=== PATIENT | female | born 2000 | race Caucasian/White ===

== ENCOUNTER 2021-06-30 22:21 | Emergency (ER) | payer OTHER, BC, SELFPAY ==
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
[2021-06-30 22:26] VITALS: BP 117/62; PULSE 160; O2SAT 98
[2021-06-30 22:30] VITALS: BP 135/70; PULSE 130; RESP 20; TEMP 37; O2SAT 99; BMI 25.8
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
[2021-06-30 23:35] LABS: UPreg QC Valid YES; Urine Pregnancy NEGATIVE (NEGATIVE)
[2021-06-30 23:38] LABS: Glucose Urine UA NEG (NEG); Leukocyte Esterase Urine NEG (NEG); Nitrite Urine NEG (NEG); Specific Gravity - Urine <= 1.005 (1.005-1.025); Urine Blood NEG (NEG); Urine Ketones NEG (NEG); Urine Protein NEG (NEG-TRACE)
[2021-06-30 23:40] LABS: Appearance Urine CLEAR; Color Urine YELLOW
[2021-07-01] VITALS: BP 135/70; PULSE 130; RESP 20; TEMP 37; O2SAT 99
[2021-07-01 02:00] VITALS: RESP 15
[2021-07-01 04:00] VITALS: PULSE 84; RESP 15; O2SAT 98
== END 2021-07-01 05:55 | disposition home or self-care (01) ==
PROVIDERS: Nurse Practitioner Family; Emergency Provider Emergency Medicine Emergency Medical Services
DX: S13.4XXA Sprain of ligaments of cervical spine, initial encounter (principal); F10.129 Alcohol abuse with intoxication, unspecified; M54.2 Cervicalgia; Y90.9 Presence of alcohol in blood, level not specified; S13.9XXA Sprain of joints and ligaments of unspecified parts of neck, initial encounter; V43.52XA Car driver injured in collision with other type car in traffic accident, initial encounter; Y93.9 Activity, unspecified; Y92.410 Unspecified street and highway as the place of occurrence of the external cause; Y99.9 Unspecified external cause status
CPT/HCPCS: 70450; 72125; 81003; 81025; 99284

== ENCOUNTER 2025-04-22 09:31 | Outpatient (AMB) | payer BC, SELFPAY ==
--- NOTE | 2025-04-22 09:34 | MHC.PC.OV ---
Vital Signs 04/22/25 09:43 04/22/25 10:25 Height 5 ft 7 in Weight 195 lb BMI 30.5 BP 122/72 Blood Pressure Location Lt brachial Position Sitting Respiration 12 Pulse 114 H 90 Pulse Source Pulse Oximeter Pulse Oximeter Temp 97.5 F Temp Source Oral Pulse Oximetry (%) 100 Oxygen Delivery Method Room Air Intake Visit Reasons: Control Intake Note: New patient to establish care. Patient is due in May for her depo shot . Special Loan Officer Required: No Allergies amoxicillin Allergy (Severe, Verified 04/22/25 10:00) Rash Medication List - Last Reviewed 04/22/25 by Montana Han MA cholecalciferol (vitamin D3) 25 mcg PO DAILY leuprolide (3 month) (Lupron Depot) 11.25 mg IM [id number] tirzepatide (weight loss) (Zepbound) mg subcut Tobacco use date assessed: 04/22/25 Dental Screening Dental Screen Date: 04/22/25 Did you have a dental visit in the last 12 months?: Yes Did you have a dental problem in the last 6 months where you did not have access to dental care?: No Was dental information given to patient?: Patient has dentist HPI HPI Comments History of Present Illness Details 24 y/o F with obesity, Vit d def, family hx of etoh abuse, acne Surgery: wisdom teeth extraction Dad 05/2023 d/t etoh, strong etoh hx of Dads side; Maternal Grandparents Social: works at [employer], owns a home, close w/ Mom step Dad and sister Health Maintenance Tdap 2021 Pap has never had one, referred today to [facility] FITTER UP Specialist Wt Mgmt FITTER UP Here today to est care & for CPE Previous: [facility], No records Vit D def - on supplement but does not take routinely Obesity - on GLP 1 prescribed from outside prescriber, having side effects on increased dose. Plan send to [facility] Wt Mgmt for mgmt FITTER UP has never had pap. Uses Depo, next inj due May 23, needs RN visit here to admin. Plan will be to do this until she gets into [facility] FITTER UP who can take this over. Febrile Sz 4 months, nothing since. KRISTYN/Fhx etoh - Loss of dad and maternal grandparents in the last 2 years. Interested in counseling. Denies si/hi. Denies etoh or substance use herself. + Vape use: Nicotine Acne was on accutane; ffd by derm in past; no interest in cont Constitutional: Denies fever. Skin: Denies rash. Eye: Denies eye pain. ENMT: Denies sore throat and nasal congestion. Respiratory: Denies shortness of breath and cough. Gastrointestinal: Denies nausea, vomiting or abdominal pain. Cardiovascular: Denies chest pain and syncope. Genitourinary: Denies dysuria. Musculoskeletal: Denies back pain and extremity pain. Neurologic: Denies headaches, confusion, and weakness. Psychiatric: Denies suicidal thoughts and substance abuse. Allergy/ Immunologic: Denies impaired immunity. General: Well developed, well nourished, in no acute distress. Appears stated age. Head: Normocephalic, atraumatic. Eyes: Pupils are equal, round and reactive to light and accommodation. Conjunctivae are clear. Vision grossly normal. Ears: TMs clear AU, EACS WNL Nose: Patent, without discharge. Mouth: There are no ulcers or lesions noted. No inflammation, no post nasal drip, no plaques nor exudates. Neck: Supple, no adenopathy or thyromegaly. Lungs: Clear to auscultation bilaterally. No rales, rhonchi or wheeze noted. Good air flow in all chahal. Heart: Regular rate and rhythm. No murmurs, click, rubs or gallops are noted. Abdomen: Bowel sounds present in all quadrants. The abdomen is soft, nontender, with no masses or organomegaly noted. No hernias are noted. Musculoskeletal: Joints are nontender, without swelling, redness, or effusions. Range of motion is observed to be normal. Pulses: Peripheral pulses are equal and palpable bilaterally. Extremities: No clubbing, cyanosis nor edema is noted. Neurologic: Gait and station normal. Cranial Nerves 2-12 intact. Motor strength grossly symmetrical and intact. No sensory loss. Balance normal. Skin: No rashes, ulcers, or lesions noted. Turgor is good. Skin color is good. Hair and nails are without abnormalities. Psych: Normal eye contact, affect and mood appropriate, and normal interactions. Patient is alert and appropriate to context. Plan ObGyn referral Wt mgmt referral Depo shot here for now Labs today Counseling referral RTO 1 year CPE, sooner PRN An additional 30 minutes was spent addressing the problem(s) noted at todays visit. This includes time spent before the visit reviewing the chart, time spent during the visit, and time spent after the visit on documentation reviewing laboratory results, diagnostic imaging, medications, performing a medically necessary evaluation, counseling on diagnoses, care coordination, ordering appropriate tests, ordering appropriate medications, review of tests performed by other providers, reporting test results with the patient, communication with other healthcare providers. [facility] Medical History (Updated 04/22/25 @ 10:27 by Bhavana García [facility]) Acne Anxiety Surgical History (Updated 04/22/25 @ 09:48 by Montana Han MA) No history of previous surgery [place] teeth removed (~2018) Family History (Updated 04/22/25 @ 09:50 by Montana Han MA) Father Mental health disorder Substance abuse Maternal Grandmother Diabetes Cardiovascular disease Thyroid disorder Lung cancer Paternal Grandfather Stomach cancer Social History (Updated 04/22/25 @ 09:48 by Montana Han MA) Household Members: None Both parents involved: No Caregiver staying overnight: No Housing: House Are you a primary managed care liaison to a significant other at home: No Do you presently have visiting nurse or other home services: No 75 years or older and lives alone: No Alcohol intake: current Alcohol intake frequency: a few times a month Patient Tobacco Use Status: Never used Tobacco e-Cigarette/Vaping Use: Currently Using Second Hand Smoke Exposure: No Current occupational status: employed Current occupation: [employer] Cognitive needs: No Hearing needs: No Vision needs: No Questionnaire PHQ-9 Over the last 2 weeks, how often have you been bothered by any of the following problems? 1. Little interest or pleasure in doing things: not at all 2. Feeling down, depressed, or hopeless: not at all 3. Trouble falling or staying asleep, or sleeping too much: not at all 4. Feeling tired or having little energy: not at all 5. Poor appetite or overeating: not at all 6. Feeling bad about yourself - or that you are a failure or have let yourself or your family down: not at all 7. Trouble concentrating on things, such as reading the newspaper or watching television: not at all 8. Moving or speaking so slowly that other people could have noticed. Or the opposite - being so fidgety or restless that you have been moving around a lot more than usual: not at all 9. Thoughts that you would be better off or of hurting yourself in some way: not at all Total score: 0 Depression Screening Interpretation: Negative Depression Screening Done: Yes 21888 - PHQ-9 Billing: Yes Source: Developed by Drs. Jefferson Lamb, Shawnee Bustillos, Duong Farrell and colleagues, with an educational femi from [employer]. Thrive Questionnaire Date Thrive assessed: 04/22/25 I am a: Patient What is your living situation today?: I have a steady place to live Within the past 12 months, did the food you bought not last and you didn't have the money to get more?: Never true Within the past 12 months, did you worry whether your food would run out before you got money to buy more?: Never true Do you have trouble paying for medicines?: No Do you have trouble getting transportation to medical appointments?: No Do you have trouble paying your heating and electricity bill?: No Do you have trouble taking care of your child, family member or friend?: No Do you have trouble with day-to-day activities such as bathing, preparing meals, shopping, managing finances, etc.?: No Are you currently unemployed and looking for a job?: No Are you interested in more education?: No Please select the resources that you would like help with: None Currently or been in a relationship where the following occur: No concerns reported THRIVE Score: 0 AUDIT C Alcohol Use Questionnaire (AUDIT-C) 1. How often do you have a drink containing alcohol?: 2-4 times a month 2. How many drinks containing alcohol do you have on a typical day when you are drinking?: 1 or 2 3. How often do you have six or more drinks on one occasion?: Never Total Score: 2 Score Reviewed/Action Taken: Yes KRISTYN-7 AMB Questionnaire KRISTYN-7 Date KRISTYN - 7 assessed: 04/22/25 Feeling nervous, anxious, or on edge: 0 = Not at all Not being able to stop or control worryin = Not at all Worrying too much about different things: 0 = Not at all Trouble relaxin = Not at all Being so restless that it is hard to sit still: 0 = Not at all Becoming easily annoyed or irritable: 0 = Not at all Feeling afraid as if something awful might happen: 0 = Not at all Total KRISTYN-7 score (0-4 normal; 5-9 mild; 10-14 moderate; 15-21 severe): 0 Source: Developed by Drs. Jefferson Lamb, Shawnee Bustillos, Duong Farrell and colleagues, with an educational femi from [employer]. KRISTYN-7 Assessment Billing KRISTYN-7 Assessment Tool: KRISTYN-7 Assessment 02975 Physical exam (Primary Care) Vital Signs: Last Vital Signs Temp 97.5 F 04/22/25 09:43 Pulse 114 H 04/22/25 09:43 Resp 12 04/22/25 09:43 BP 122/72 04/22/25 09:43 Pulse Ox 100 04/22/25 09:43 Oxygen Delivery Method Room Air 04/22/25 09:43 BMI result Body Mass Index 30.5 BMI Assessment/Plan discussion: High BMI High, discussed plan: lifestyle Tobacco/Smoking Status: Tobacco use Status Tobacco use date assessed 04/22/25 04/22/25 09:39 Patient Tobacco Use Status Never used Tobacco 04/22/25 09:48 e-Cigarette/Vaping Use Currently Using 04/22/25 09:48 PHQ-9: PHQ-9 Score PHQ-9: Total score 0 04/22/25 09:39 Depression Screening Interpretation: Negative Thrive Assessment: Date of Thrive Assessment Date Thrive assessed 04/22/25 04/22/25 09:39 Currently or been in a relationship where the following occur: No concerns reported Coding Level of Care Code New Pt Level 3 (44338) New Pt Prev Care 18-39yr(69806 Diagnoses Encounter for general adult medical examination with abnormal findings Z00.01 Obesity (BMI 30-39.9) E66.9 Vitamin D deficiency E55.9 Patient's father is Z84.89 Family history of alcohol abuse and dependence Z81.1 KRISTYN (generalized anxiety disorder) F41.1 Vapes nicotine containing substance Z72.0 Encounter to establish care Z76.89 Additional Codes KRISTYN-7 Assessment Billing - KRISTYN-7 Assessment Tool: KRISTYN-7 Assessment 72108 ([id number]) PHQ-9 - 04006 - PHQ-9 Billing: Yes ([id number]) Assessment & Plan Assessment & Plan (1) Encounter for general adult medical examination with abnormal findings: Onset Date: ~04/22/25 Code(s): Z00.01 - Encounter for general adult medical examination with abnormal findings Category: Medical (2) Obesity (BMI 30-39.9): Code(s): E66.9 - Obesity, unspecified Category: Medical (3) Vitamin D deficiency: Code(s): E55.9 - Vitamin D deficiency, unspecified Category: Medical (4) Patient's father is : Code(s): Z84.89 - Family history of other specified conditions Category: Medical (5) Family history of alcohol abuse and dependence: Comment: Dad and dad's side of family Code(s): Z81.1 - Family history of alcohol abuse and dependence Category: Medical (6) KRISTYN (generalized anxiety disorder): Code(s): F41.1 - Generalized anxiety disorder Category: Medical (7) Vapes nicotine containing substance: Comment: Smoking Cessation How to Quit There are a lot of ways to quit smoking and many resources to help you. Family members, friends, and co-workers may be supportive or encouraging, but to be successful the desire and commitment to quit must be your own. Most people who have been able to successfully quit smoking made at least one unsuccessful attempt in the past. Try not to view past attempts to quit as failures, but rather as learning experiences. Stopping smoking or using smokeless tobacco is difficult, but anyone can do it. Know the symptoms to expect when you stop. Common symptoms include: ? An intense craving for nicotine ? Anxiety, tension, restlessness, frustration, or impatience ? Difficulty concentrating ? Drowsiness or trouble sleeping, as well as bad dreams and nightmares ? Drowsiness and trouble sleeping ? Headaches ? Increased appetite and weight gain ? Irritability or depression How severe your symptoms are depends on how long you smoked and how many cigarettes you smoked each day. Feel ready to quit? ? First and foremost, set a quit date and quit completely on that day. Before your quit date, you may begin reducing your cigarette use. But remember, there is no safe level of cigarette smoking. ? List the reasons why you want to quit. Include both short- and long-term benefits. ? Identify the times you are most likely to smoke. For example, do you tend to smoke when feeling stressed or down? When out at night with friends? While drinking coffee or alcohol? When bored? While driving? Right after a meal or sex? During a work break? While watching TV or playing cards? When you are with other smokers? ? Let all of your friends, family, and co-workers know of your plan to stop smoking and your quit date. Just being aware that they know what you're going through can be helpful, especially when you are grumpy. ? Get rid of all your cigarettes just before the quit date, and clean out anything that smells like smoke, such as clothes and furniture. Make a plan about what you will do instead of smoking at those times when you are most likely to smoke. ? Be as specific as possible. For example, drink tea instead of coffee -- tea may not trigger the desire for a cigarette. Or, take a walk when you feel stressed. ? Remove ashtrays and cigarettes from the car. Place pretzels or hard candies there instead. Pretend-smoke with a straw. ? Find activities that focus your hands and mind but are not taxing or fattening. Computer games, solitaire, knitting, sewing, and crossword puzzles may help. ? If you normally smoke after eating, find other ways to end a meal. Play a tape or CD, eat a piece of fruit, get up and make a phone call, or take a walk (a good distraction that also celis calories). Make other changes in your lifestyle. ? Change your daily schedule and habits. Eat at different times or eat several small meals instead of three large ones. Sit in a different chair or even a different room. ? Satisfy your oral habits by eating celery or other low-calorie snack, chewing sugarless gum, or sucking on a cinnamon stick. ? Go to public places and restaurants where smoking is prohibited or restricted. ? Eat regular meals and don't eat too much candy or sweet things. ? Get more exercise. Take walks or ride a bike. Exercise helps relieve the urge to smoke. Set short-term quitting goals and reward yourself when you meet them. ? Every day, put the money you normally spend on cigarettes in a jar. Then buy something pleasurable after a period of time. ? Try not to think about all the days ahead you will need to avoid smoking. Take it one day at a time. ? Even one puff or one cigarette will make your desire for more cigarettes even stronger. However, it is normal to make mistakes. So even if you have one cigarette, you don't need to take the next one. Other tips to help you quit smoking and stick to it: ? Enroll in a smoking cessation program (hospitals, health departments, community centers, and work sites often offer programs). Learn about self-hypnosis or other techniques. ? Ask your health care provider about prescription medications that are safe and appropriate for you. ? Find out about nicotine patches, gum, and sprays. The [employer]'s web site -- www.cancer.org -- is an excellent resource for smokers who are trying to quit, and the [employer] [place] [employer] can help some smokers kick the habit. Above all, don't get discouraged if you aren't able to quit smoking the first time. Nicotine addiction is a hard habit to break. Try something different next time. Develop new strategies, and try again. Many people take several attempts to finally kick the habit. Code(s): Z72.0 - Tobacco use Category: Social Hx (8) Encounter to establish care: Code(s): Z76.89 - Persons encountering health services in other specified circumstances Plan . Orders: Orders Complete Blood Count no Diff Today E55.9 - Vitamin D deficiency, unspecified, E66.9 - Obesity, unspecified, Z00.01 - Encounter for general adult medical examination with abnormal findings Hemoglobin A1c Today E55.9 - Vitamin D deficiency, unspecified, E66.9 - Obesity, unspecified, Z00.01 - Encounter for general adult medical examination with abnormal findings Lipid Panel Today E55.9 - Vitamin D deficiency, unspecified, E66.9 - Obesity, unspecified, Z00.01 - Encounter for general adult medical examination with abnormal findings Vitamin B12 and Folate Today E55.9 - Vitamin D deficiency, unspecified, E66.9 - Obesity, unspecified, Z00.01 - Encounter for general adult medical examination with abnormal findings Comprehensive Met. Panel Today E55.9 - Vitamin D deficiency, unspecified, E66.9 - Obesity, unspecified, Z00.01 - Encounter for general adult medical examination with abnormal findings Ferritin Today E55.9 - Vitamin D deficiency, unspecified, E66.9 - Obesity, unspecified, Z00.01 - Encounter for general adult medical examination with abnormal findings Microalbumin, Random (w Creat) Today E55.9 - Vitamin D deficiency, unspecified, E66.9 - Obesity, unspecified, Z00.01 - Encounter for general adult medical examination with abnormal findings TSH reflex Free T4 Today E55.9 - Vitamin D deficiency, unspecified, E66.9 - Obesity, unspecified, Z00.01 - Encounter for general adult medical examination with abnormal findings Vitamin D 25-OH Total Today E55.9 - Vitamin D deficiency, unspecified, E66.9 - Obesity, unspecified, Z00.01 - Encounter for general adult medical examination with abnormal findings Referrals Nurse Navigator Referral F41.1 - Generalized anxiety disorder, Z81.1 - Family history of alcohol abuse and dependence Medical Weight Management Referral E66.9 - Obesity, unspecified 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 Seasonal Allergies ? Insect Bites ? Cough ? Diarrhea ? Acute Asthma Attacks ? Back, Knee or Joint Pain ? Ear Infection ? Fever without a Rash ? Headaches ? Nausea ? [place] Eye, Rash or Skin Irritation ? Sore Throat ? Sports Physicals ? Vomiting Most insurances are accepted. Patients do not need to be part of the [facility] to seek care at the walk-in clinic. Locations [facility] , [place] [address] ? [phone] [facility] Walk-In Care in [place] provides services to ages 18 and over. Open Monday-Monday: 8 a.m. to 5 p.m. and Monday: 9 a.m. to 3 p.m.* *Hours may vary due to staffing availability. To confirm Walk-In Care hours in [place], please call [phone]. [address] [place] [address] ? [phone] [facility] Walk-In Care in [place] provides services to ages 12 and over. Open Monday-Monday: 8 a.m. to 5 p.m. Hours may vary due to staffing availability. To confirm Walk-In Care hours in [place], please call [phone]. LABORATORY SERVICES: [facility] Lab ? Primary Location [address] [place] [address] Monday through Monday 6:00 AM ? 5:00 PM Monday 7:00 AM ? 11:00 AM* [phone] The [facility] Lab is centrally located near the front entrance of the [facility] for easy outpatient access. Convenient parking is provided for outpatients. *Hours may vary due to staffing availability. To confirm Laboratory hours for any location, please call [phone]. Offsite Location For your convenience, we offer offsite laboratory draw stations at the following locations: [address] [place] [address] ? [facility] [address], [address] Monday through Monday 7:30 AM ? 1:00 PM* [phone] *Hours may vary due to staffing availability. To confirm Laboratory hours for any location, please call [phone]. [place] ? [address] Monday through Monday 6:00 AM ? 3:30 PM* Monday 6:30 AM ? 3 PM* [phone] *Hours may vary due to staffing availability. To confirm Laboratory hours for any location, please call [phone] [place] [address] Monday through Monday 7:30 AM ? 4:00 PM* [phone] *Hours may vary due to staffing availability. To confirm Laboratory hours for any location, please call [phone] [place] [address] Monday through 9:00 AM ? 4:00 PM* *Hours may vary due to staffing availability. To confirm Laboratory hours for any location, please call [phone]. Appointments are not necessary. Walk-ins are welcome. Like all the departments throughout the [facility], our Lab undergoes frequent reviews to ensure the quality and accuracy of test results, and our staff takes special pride in its status as a nationally accredited facility. Patient Portal: ONE PATIENT. ONE RECORD. BETTER CARE. [facility] has a fully integrated, cutting-edge mobile electronic health information system that has revolutionized the way we care for our patients and manage our organization. This system improves communication and coordination enabling us to provide safe, higher-quality care, and an overall positive experience for staff and patients. Our first priority, as always, is to deliver the highest quality care possible. The system is running in the background supporting that priority. This portal is for all [facility] services and practices. If you are experiencing any technical difficulties with enrolling or logging into the Patient Portal please complete the [facility] Patient Portal Technical Support Form. [facility] now offers a new secure on-line interactive tool for patients to review their health information ? ?Patient Portal. This interactive web portal will enable patients and their families to take an active role in their care by providing easy, secure access to their health information via the internet. The Patient Portal provides patients with instant access to their health information, including laboratory results, medications, allergies, demographic information, visit history, and more. In addition to managing their own care, parents and health care proxies with authorized consent will appreciate the ability to access the records of those individuals for whom they provide care. Please note: if you wish to gain access (Proxy) to another patient?s portal, you will be required to come to the Medical Records Department in person at [facility]. Both the patient giving proxy access and the proxy will need to provide photo identification and complete the appropriate authorization. The Patient Portal also allows track their appointments online. The [facility] Patient Portal also saves patients time by allowing them to submit updates to their demographic and contact information prior to their visits. Portal email notifications will also alert patients to any new activity on their portal, such as test results and new appointments. In order to initially enroll in the [facility] [facility] Patient Portal, you will need to enter some required information including the following: your [facility] Medical Record number your personal home email address name date of Please note: In order to enroll in the [facility] Patient Portal, we need to have your email address on file in your electronic medical record. ?The email address needs to be specific for one person (yourself) in order for your Portal enrollment to be successful. ?You can update your email address in person with our Registration staff when you are registering for a hospital visit. ?Otherwise, you will need to come to the Health Information Management (Medical Records) Department at [facility]. ?We are open from Monday ? Monday from 7:30 a.m. ? 4:30 p.m. ?You will be required to present a photo id. Once you have successfully enrolled in the Patient Portal, you will receive a one-time user id and password for the Portal, sent to your email address. ?This will allow you to log into the Patient Portal within 99 hrs and reset your own logon id and password, and define personal security questions. ?Once your permanent login and password have been set, you can log into the [facility] Patient Portal at any time via the blue button above or from the Portal Logon button on any page of the [facility] website. [facility] and [facility] encourage all of our patients to enroll in Patient Portal as it presents a valuable opportunity for patients and their families to actively participate in their care and stay healthy Welcome to [facility]. ?We look forward to working with you. Health screenings for women You should visit your health care provider from time to time, even if you are healthy. The purpose of these visits is to: Screen for medical issues Assess your risk for future medical problems Encourage a healthy lifestyle Update vaccinations and other preventive care services Help you get to know your provider in case of an illness Information Even if you feel fine, you should still see your provider for regular checkups. These visits can help you avoid problems in the future. For example, the only way to find out if you have high blood pressure is to have it checked regularly. High blood sugar and high cholesterol levels also may not have any symptoms in the early stages. A simple blood test can check for these conditions. There are specific times when you should see your provider or receive specific health screenings. The [place] Preventive Services Task Force publishes a list of recommended screenings. Below are screening guidelines for women ages 18 to 39. BLOOD PRESSURE SCREENING Your blood pressure should be checked at least once every 3 to 5 years if: Your blood pressure is in the normal range (top number less than 120 mm Hg and bottom number less than 80 mm Hg) You don't have risk factors for high blood pressure Ask your provider if you need your blood pressure checked more often if: The top number is 120 to 129 mm Hg or the bottom number is 70 to 79 mm Hg You have diabetes, heart disease, kidney problems, are overweight, or have certain other health conditions You have a first-degree relative with high blood pressure You are Black You had high blood pressure during a If the top number is 130 mm Hg or greater or the bottom number is 80 mm Hg or greater, this is considered stage 1 hypertension. Schedule an appointment with your provider to learn how you can reduce your blood pressure. Watch for blood pressure screenings in your area. Ask your provider if you can stop in to have your blood pressure checked. BREAST CANCER SCREENING Experts do not agree about the benefits of breast self-exams in finding breast cancer or saving lives. Talk to your provider about what is best for you. A screening mammogram is not recommended for most women under age 40. Your provider may discuss and recommend mammograms, MRI scans, or ultrasounds if you have an increased risk for breast cancer, such as: A mother or sister who had breast cancer at a young age (most often starting screening earlier than the age the close relative was diagnosed) You carry a high-risk genetic marker CERVICAL CANCER SCREENING Cervical cancer screening should start at age 21 years unless your provider advises otherwise. After the first test: Women ages 21 through 29 should have a Pap test every 3 years. Exoprts do not agree on whether HPV testing is recommended for this age group. Women ages 30 through 65 should be screened with either a Pap test every 3 years or the HPV test every 5 years or both tests every 5 years (called cotesting ). Women who have been treated for precancer (cervical dysplasia) should continue to have Pap tests for 20 years after treatment or until age 65, whichever is longer. If you have had your uterus and cervix removed (total hysterectomy), and you have not been diagnosed with cervical cancer or precancer (high grade cervical neoplasia), you do not need cervical cancer screening. CHOLESTEROL SCREENING Cholesterol screening should begin at: Age 45 for women with no known risk factors for coronary heart disease Age 20 for women with known risk factors for coronary heart disease Repeat cholesterol screening should take place: Every 5 years for women with normal cholesterol levels More often if changes occur in lifestyle (including weight gain and diet) More often if you have diabetes, heart disease, kidney problems, or certain other conditions DIABETES SCREENING You should be screened for diabetes starting at age 35 and then repeated every 3 years if you have no risk factors for diabetes. Screening may need to start earlier and be repeated more often if you have other risk factors for diabetes, such as: You have a first degree relative with diabetes. You are overweight or have obesity. You have high blood pressure, prediabetes, or a history of heart disease. Screening for diabetes should be done if you are planning to become and you are overweight and have other risk factors such as high blood pressure. DENTAL EXAM Go to the dentist once or twice every year for an exam and cleaning. Your dentist will evaluate if you need more frequent visits. EYE EXAM Have an eye exam every 5 to 10 years before age 40. If you have vision problems, have an eye exam every 2 years or more often if recommended by your provider. You should have an eye exam that includes an examination of your retina (back of your eye) at least every year if you have diabetes. IMMUNIZATIONS Commonly needed vaccines include: Flu shot: get one every year. COVID-19 vaccine: ask your provider what is best for you. Tetanus-diphtheria and acellular pertussis (Tdap) vaccine: have one at or after age 19 as one of your tetanus-diphtheria vaccines if you did not receive it as an adolescent. Tetanus-diphtheria: have a booster (or Tdap) every 10 years. Varicella vaccine: receive 2 doses if you never had chickenpox or the varicella vaccine. Hepatitis B vaccine: receive 2, 3, or 4 doses, depending on your exact circumstances. Measles, mumps, and rubella (MMR) vaccine: receive 1 to 2 doses if you are not already immune to MMR. Your provider can tell you if you are immune. Ask your provider about the human papillomavirus (HPV) vaccine if: You have not received the HPV vaccine in the past You have not completed the full vaccine series (you should catch up on this shot) Ask your provider if you should receive other immunizations if you have certain health problems that increase your risk for some diseases such as pneumonia. INFECTIOUS DISEASE SCREENING Women who are sexually active should be screened for chlamydia and gonorrhea up until age 25. Women 25 years and older should be screened for chlamydia and gonorrhea if at high risk. Screening for hepatitis C: All adults ages 18 to 79 should get a one-time test for hepatitis C. people should be screened at every . Screening for human immunodeficiency virus (HIV): All people ages 15 to 65 should get a one-time test for HIV. Depending on your lifestyle and medical history, you may also need to be screened for infections such as syphilis and HIV, as well as other infections. PHYSICAL EXAM All adults should visit their provider from time to time, even if they are healthy. The purpose of these visits is to: Screen for disease Assess your risk of future medical problems Encourage a healthy lifestyle Update your vaccinations and other preventive care services Maintain a relationship with a provider in case of an illness Your height, weight, and BMI should be checked at every exam. During your exam, your provider may ask you about: Depression and anxiety Diet and exercise Alcohol and tobacco use Safety issues, such as using seat belts, smoke detectors, and intimate partner violence Your medicines and risk for interactions SKIN SELF-EXAM Your provider may check your skin for signs of skin cancer, especially if you're at high risk, such as if you: Have had skin cancer before Have close relatives with skin cancer Have a weakened immune system OTHER SCREENING Talk with your provider about colon cancer screening if you have a strong family history of colon cancer or polyps, or if you have had inflammatory bowel disease or polyps yourself. Routine bone density screening of women under 40 is not recommended.
[2025-04-22 09:43] VITALS: BP 122/72; PULSE 114; RESP 12; TEMP 36.4; O2SAT 100; BMI 30.5
[2025-04-22 10:25] VITALS: PULSE 90
--- OUTSIDE RECORDS SUMMARY | 2025-04-22 10:30 | XMS_ITS | Clinical Summary ---
Author Organization [facility] Address [address] [place] [phone] Phone Care Team Providers Care Claims Consultant Name Role Phone Lis Painting NP Primary Care Provider [phone] Allergies Active Allergy Reactions Criticality Noted Date Comments Amoxicillin 07/30/2024 Nickel 08/16/2018 Medications tretinoin 0.025 % cream 5 07/10/2019 Active Clindamycin Phos-Benzoyl Perox gel APPLY TO THE FACE EVERY EVENING FOR ACNE 04/05/2022 Active medroxyPROGESTE Jeromy 150 MG/ML injectionIndica tions: control counseling Inject 1 mL (150 mg total) into the muscle every 3 (three) months. 1 mL 02/21/2025 Active Active Problems Problem Noted Date Diagnosed Date Viral URI 12/12/2024 Assessment & Plan (12/12/2024 12:41 PM EST): Exam is reassuring. No red flags. Strep and flu are negative Discussed supportive care and reasons to call the office for re-evaluation Viral Upper Respiratory Infection Plan: Encourage extra fluids and rest. The following may help: steamy baths cool-mist humidifiers nasal saline drops or sprays to help with congestion. Can use Ibuprofen or Acetaminophen for discomfort or fever. If older than one year of age, may offer 1-2 teaspoons of honey (straight, or mixed with tea or warm lemonade) to help with cough. Vicks chest rub may help with ease of breathing and reducing cough. Monitor for rapid breathing, retractions (labored breathing), wheezing, or shortness of breath. Call if worsening, fever for more than 4-5 days, or no improvement after a few days. Other fatigue 09/13/2024 Assessment & Plan (09/13/2024 11:46 AM EDT): Previous blood work was reassuring. Will check for lyme and mono today. Encourage to keep log of symptoms- pay attention to caffeine intake and water intake. Should be doing regular meals. Healthy diet. Regular exercise. I am suspicious the episodes of headaches and dizziness are from a migraine. She should take relief medication as soon as the episode begins and see if she finds relief. She will call office to book a follow up once she creates a log of symptoms or send picture of log through portal. Well adult exam 02/21/2024 Assessment & Plan (02/21/2024 2:27 PM EDT): [facility] counseling completed Aware due for pap smear Young Adult Plan: Get 8-9 hours of sleep per night. Eat healthy diet including 5 servings fruits and vegetables, no daily soda or juice, 3 servings calcium rich foods daily. Get one hour of exercise daily. Wear seatbelt in car, helmet while riding bike. Dental checkup every 6 months If wears eyeglasses or contacts, vision exam yearly Personal space, safe sex, bullying counseling done. Obsessive-compulsive disorder 02/20/2021 Assessment & Plan (02/21/2024 2:26 PM EDT): Saw psych in the past. Does not want to take medication. Fear that if she stops compulsions, bad things may happen. Compulsions to not stop her from her everyday life and she feels she is managing symptoms well. Dandruff 06/09/2020 Assessment & Plan (06/09/2020 11:12 PM EDT): Patient tried T-gel previously but this dried her scalp out too much. DIscussed use of ciclopirox shampoo twice a week for 4 weeks. This should clear up tinea corporis. Mild stress incontinence 12/13/2018 Overview (04/29/2019): Long-standing difficulty incontinence since childhood including stress incontinence after grade school; no identified urological abnormalities Visual field defects 12/13/2018 Contraceptive surveillance 04/02/2018 Overview (08/16/2018): Follow-up visit for Depo Provera injection (V25.49) Onset: 04/02/2018 Added by: Manasa Haywood Dysthymia 08/16/2016 Overview (08/16/2018): Depression (311) Onset: 08/16/2016 Added by: Tammi Catalan Other acne 03/24/2016 Overview (08/16/2018): Acne (706.1) Onset: 03/24/2016 Added by: Tammi Catalan Assessment & Plan (02/21/2024 2:27 PM EDT): Will be seeing derm next month Resolved Problems Problem Noted Date Diagnosed Date Resolved Date Hand pain, right 07/03/2021 02/21/2024 Assessment & Plan (07/03/2021 11:38 AM EDT): No specific point tenderness on exam or reduced movement of hand but with pain and bruising centering on 3rd knuckle will obtain x-ray to rule out fracture. X-ray was negative for fractures. Discussed in the visit to use ibuprofen 400mg twice a day for 5 days to help with decreasing inflammation in this area. No restrictions currently. Flea bite of multiple sites of lower extremity, initial encounter 06/29/2021 02/21/2024 Assessment & Plan (06/29/2021 3:30 PM EDT): These are flea bites. It is on the posterior thighs bilaterally. We do not know where this is. I will give her a steroid cream for this. Disturbance of conduct 04/02/201802/20 Overview (08/16/2018): Behavior problem in children (312.9) Onset: 04/02/2018 Added by: Manasa Haywood Other specified behavioral problem 10/05/2014 01/09/2019 Overview (08/16/2018): Other specified behavioral problem (V40.39) Onset: 10/05/2014 Added by: Tammi Catalan Encounters Date Type Department Care Team Description 02/28/2025 11:00 AM EDT Clinical Support [facility] [address] [place] [address] [place] [phone] Eve Beckham MA control counseling (Primary Dx) 02/20/2025 Refill [facility] [address] [place] [address] [place] [phone] Lis Painting NP control counseling from Last 3 Months Immunizations Immunization Administration Dates Next Due DTaP 5 09/14/2006, 3,03/18/2002,01/14,2001 HPV, Quadrivalent 04/26/2013,12/27/2012,10/25/20 12 Hep A, ped/adol 10/15/2018,10/03/2016 Hep B, ped/adol 12/12/2002,03/18/2002,2001 Hib (PRP-T) 03/21/2003, 2,01/14/2002,11/16 IPV 09/14/2006, 3,01/14/2002,11/16 Influenza, injectable, quadrivalent 08/01/2019,1 12/03/2015 Influenza, injectable, quadr ivalent, preservative free 08/31/2020,10/15/2018,08/12/2017 Influenza, injectable, trivalent 08/10/2010,09/13,09/26/2007 Influenza, injectable, triva lent, preservative free 10/17/2012 Influenza, intranasal, quadrivalent 09/18/2015,1 11/30/2013,11/04/2013 MMR 09/13/2002 MMRV 09/14/2006 Meningococcal Conj (Menactra) MCV4P 10/10/2017,1 12/26/2011 Pneumococcal Conjugate 03/21/2003,2001,01/14/2002,11/16 Tdap 06/28/2022,10/25/2012 Varicella 09/13/2002 Family History Medical History Relation Name Comments No Known Problems Father Henry No Known Problems Mother Madina No Known Problems Sister Ginny Relation Name Status Comments Father Henry Alive Mother Madina Alive Sister Ginny Alive Social History Tobacco Use Types Packs/Day Years Used Date Smoking Tobacco: Never Smokeless Tobacco: Never Comments:Never Smoker Alcohol Use Standard Drinks/Week Comments Never 0 (1 standard drink = 0.6 oz pur e alcohol) Hunger/Food Answer Date Recorded In the last 12 months, did y ou or your family ever eat less than you felt you should because there wasn't enough money for food? No 02/21/2024 Stable Housing Answer Date Recorded Are you worried that in the next 2 months you may not have stable housing? No 02/21/2024 Transportation Concerns Answer Date Rec orded In the last 12 months, have you or your family ever had to go without healthcare because you didn't have a way to get there? No 02/21/2024 Hazards in Home Answer Date Recorded Think about the place you li ve. Do you have problems with any of the following? Pests (mice or roaches), mold, no/not working smoke detectors, water leaks, no window guards. No 2023 Financing Utilities Answer Date Recorde d In the last 12 months, has t he electric, gas, oil, or water company threatened to shut off your services in your home? No 02/21/2024 Safety at Home Answer Date Recorded Are you or your family worried about feeling saf e in your home? No 02/21/2024 Outside Support Answer Date Recorded Do you feel that you need mo re support from other people or programs to help you care for yourself or your family? No 02/21/2024 Understanding Health Concerns Answer Da te Recorded Do you need help understandi ng your or your child's healthcare needs (diagnosis, medications, plan, etc.)? No 02/21/2024 Financing Health Concerns Answer Date R ecorded In the last 12 months, was t here a time when your child needed to see a doctor or get medications or supplies but could not because of cost? No 02/21/2024 Missing School or Work Answer Date Davian rded Did you or your child miss s chool or work because of a health problem that could have been avoided? No 02/21/2024 Child Education Answer Date Recorded Do you have concerns about y our/your child's learning or behavior in school, preschool, or daycare? No 02/21/2024 Comments No Sex and Gender Information Value Date Recorded Sex Assigned at Female 02/21/2024 1:28 PM EDT Legal Sex Female 6:19 PM EDT Gender Identity Female 02/21/2024 1:28 PM EDT Sexual Orientation Bisexual 06/28/2022 7: 45 PM EDT Last Filed Vital Signs Vital Sign Reading Time Taken Comments Blood Pressure 118/72 09/13/2024 11:10 AM EDT Pulse 77 07/30/2024 3:02 PM EDT Temperature 35.9 ??C (96.7 ??F) 02/28/2025 11:09 AM E DT Respiratory Rate - - Oxygen Saturation 99% 07/30/2024 3:02 PM EDT Inhaled Oxygen Concentration - - Weight 103 kg (227 lb) 12/12/2024 11:40 AM EST Height 167.6 cm (5' 6 ) 02/21/2024 1:06 PM EDT Body Mass Index 36.64 02/21/2024 1:06 PM EDT Plan of Treatment Upcoming Encounters Date Type Department Care Team (Late st Contact Info) Description 05/23/2025 11:00 AM EDT Clinical [facility] [address] [place] [address] [place] [id number] Health Maintenance Due Date Last Done Comments HIV Screening 2001 Syphilis Screening (consider for higher risk patients) 2001 Men B Vaccine (1 of 2 - Standard) 2017 Hepatitis C Screening 2019 Influenza Vaccines (#1) 2024 08/31/20 20, 08/01/2019, 10/15/2018, Additional history exists COVID-19 Vaccine (1 - 2023-2 5 season) 2024 Chlamydia and Gonorrhea Screening 11/13/2024 02/21/2024, 06/28/2022, 12/17/2020, Additional history exists DTaP,Tdap,and Td Vaccines (8 - Td or Tdap) 06/28/2032 06/28/2022, 10/25/2012, 09/14/2006, Additional history exists Hepatitis B Vaccines Completed 12/12/2002, 03/18/2002, 2001 HIB Vaccines Completed 03/21/2003, 04/2002, 01/14/2002, Additional history exists Pneumococcal Vaccine Completed 03/21/2003, 03/18/2002, 01/14/2002, Additional history exists IPV Vaccines Completed 09/14/2006, 07/2003, 01/14/2002, Additional history exists MMR Vaccines Completed 09/14/2006, 09/13/2002 Varicella Vaccines Completed 09/14/2006, 09/13/2002 HPV Vaccines Completed 04/26/2013, 12/14, 10/25/2012 Meningococcal Vaccine Completed 10/10/2017, 012 Hepatitis A Vaccines Completed 10/15/2018, 10/03/20 16 Procedures * Due to [place] [employer] law, this organization might not be sharing sensitive test results. Procedure Name Priority Date/Time Associated Diagnosis Comments POCT , URINE Routine 02/28/2025 11:15 AM EDT control counseling CHLAMYDIA AND GONORRHEA, AMPLIFIED Routine 02/21/2024 1:24 PM EDT Screening for STD (sexually transmitted disease) from Last 3 Months or Most Recently Relevant to Health Maintenance Results * Due to [place] [employer] law, this organization might not be sharing sensitive test results. * POCT , urine (02/28/2025 11:15 AM EDT) Preg Test, Urine, POC Negative Negative, Presumptive negative [facility] Urine 02/28/2025 11:1 5 AM EDT us Lis Painting NP POINT OF CARE TEST ORDERABLES Final Result [facility] [address], [address] [place] [address] * Chlamydia and Gonorrhoea, Amplified (02/21/2024 1:24 PM EDT) C trach CAITLIN Negative Negative [facility] N gonorrhoeae CAITLIN Negative Negative [facility] Swab (Vagina) 02/21/2024 1:2 4 PM EDT 02/21/2024 Comment:Vagina Narrative [facility] - 02/22/2024 9:06 PM EDT Performed at: ??01 - [facility] [address] ??[id number] Purchase Analyst: Mckayla Radford MD, Phone: ??[phone] Lis Painting NP LAB MICROBIOLOGY - GENERAL ORD ERABLES Final Result [facility] [address] [place] [address] from Last 3 Months or Most Recently Relevant to Health Maintenance Insurance HMO [facility] Care Teams Claims Consultant Relationship Specialty Start Date End Date Lis Painting NP [address] [place] PCP - General Pediatrics 05/02/23
== END 2025-04-22 10:24 | disposition home or self-care (01) ==
LOC: HO.HMCFM 09:32
PROVIDERS: PCP Nurse Practitioner Family; Visit Provider Nurse Practitioner Family
DX: Z00.01 Encounter for general adult medical examination with abnormal findings (principal); E66.9 Obesity, unspecified; E55.9 Vitamin D deficiency, unspecified; Z68.30 Body mass index [BMI] 30.0-30.9, adult; Z84.89 Family history of other specified conditions; Z81.1 Family history of alcohol abuse and dependence; F41.1 Generalized anxiety disorder; Z72.0 Tobacco use; Z76.89 Persons encountering health services in other specified circumstances

== ENCOUNTER → 2025-04-22 09:31 | Outpatient (BNVA) | payer BC, SELFPAY | PROVIDERS: PCP Nurse Practitioner Family; Visit Provider Nurse Practitioner Family | DX: Z00.01 Encounter for general adult medical examination with abnormal findings (principal); Z76.89 Persons encountering health services in other specified circumstances; E66.9 Obesity, unspecified; Z68.30 Body mass index [BMI] 30.0-30.9, adult; E55.9 Vitamin D deficiency, unspecified; F41.1 Generalized anxiety disorder; Z72.0 Tobacco use; Z81.1 Family history of alcohol abuse and dependence; Z13.31 Encounter for screening for depression; Z13.30 Encounter for screening examination for mental health and behavioral disorders, unspecified | CPT/HCPCS: 96127 ==

== ENCOUNTER 2025-04-22 10:45 | Outpatient (REF) | payer BC, SELFPAY ==
[2025-04-22 14:25] LABS: Hematocrit 39.7 % (37.0-47.0); Hemoglobin 13.7 g/dl (12.0-16.0); Mean Corpuscular HGB Conc 34.5 g/dl (31.0-35.0); Mean Corpuscular Volume 87.1 fL (80.0-98.0); Mean Platelet Volume 11.7 fL (9.4-12.3); Platelet Count 274 X10*3/uL (160-400); Red Blood Count 4.56 X10*6/uL (4.20-5.50); Red Cell Distribution Width 12.7 % (11.0-16.0); White Blood Count 7.1 X10*3/uL (4.8-10.8)
[2025-04-22 14:38] LABS: Estimated Average Glucose 88 mg/dL; Hemoglobin A1c % 4.7 % (<6.0)
[2025-04-22 14:51] LABS: Alanine Aminotransferase 23 U/L (0-31); Alkaline Phosphatase 62 U/L (39-117); Anion Gap 11 (12-20); Aspartate Amino Transferase 31 U/L (5-31); Bilirubin Total 0.9 mg/dL (0.0-1.0); Blood Urea Nitrogen 7 mg/dL (9-16); Calcium 9.6 mg/dL (8.4-10.2); Carbon Dioxide 20 mmol/L (22-29); Chloride 110 mmol/L (96-108); Cholesterol 129 mg/dL (<200); Estimated Glomerular Filt Rate > 60; Glucose Random 81 mg/dL (60-115); HDL Cholesterol 38 mg/dL (>40); LDL Cholesterol Calculated 78 mg/dL (<100); Potassium 3.2 mmol/L (3.3-5.1); Sodium 138 mmol/L (135-145); Total Protein 7.9 g/dL (6.5-8.0); Triglycerides 67 mg/dL (<150)
[2025-04-22 15:12] LABS: Ferritin 163 ng/mL (10-122); Folate 5.5 ng/mL (> or = 4.0); TSH reflex Free T4 1.04 uIU/mL (0.32-4.0); Vitamin B12 284 pg/mL (200-900)
[2025-04-22 15:23] LABS: Microalbum/Creatinine Ratio Ur 7.7 ug/mg cr (<30)
== END 2025-04-22 10:46 | disposition home or self-care (01) ==
LOC: HO.WFDLDS 10:45
PROVIDERS: Visit Provider Nurse Practitioner Family
DX: Z00.01 Encounter for general adult medical examination with abnormal findings (principal); E66.9 Obesity, unspecified; E55.9 Vitamin D deficiency, unspecified; Z13.1 Encounter for screening for diabetes mellitus
CPT/HCPCS: 36415; 80053; 80061; 82043; 82306; 82570; 82607; 82728; 82746; 83036; 84443; 85027

== ENCOUNTER 2025-06-18 09:47 | Outpatient (AMB) | payer BC, SELFPAY ==
--- NOTE | 2025-06-18 09:59 | A.OFFPC_ITS ---
Vital Signs 06/18/25 10:03 Height 5 ft 7 in Weight 180 lb 8 oz BMI 28.3 BP 122/70 Blood Pressure Location Lt brachial Position Sitting Respiration 12 Pulse 68 Pulse Source Pulse Oximeter Temp 97.4 F Temp Source Oral Pulse Oximetry (%) 99 Oxygen Delivery Method Room Air Intake Visit Reasons: Re: Medication glp-1 Intake Note: Patient has concern regarding her glp-1 and had stop taking it since last week. Recreational Programs Director Required: No Allergies amoxicillin Allergy (Severe, Verified 06/18/25 10:08) Rash Medication List - Last Reconciled 06/18/25 by Bhavana García, PACU NURSE- cholecalciferol (vitamin D3) 25 mcg PO DAILY medroxyprogesterone (Depo-Provera) 150 mg IM [id number] Tobacco use date assessed: 06/18/25 Dental Screening Dental Screen Date: 06/18/25 Did you have a dental visit in the last 12 months?: Yes Did you have a dental problem in the last 6 months where you did not have access to dental care?: No Was dental information given to patient?: Patient has dentist HPI HPI Comments History of Present Illness Details 24 y/o F with obesity, Vit d def, family hx of etoh abuse, acne Surgery: wisdom teeth extraction Dad 05/2023 d/t etoh, strong etoh hx of Dads side; Maternal Grandparents Social: works at [employer], owns a home, close w/ Mom step Dad and sister Health Maintenance Tdap 2021 Pap has never had one, referred today to [facility] SOIL CONSERVATION AIDE Specialist Wt Mgmt SOIL CONSERVATION AIDE Stopped taking 06/01/25 Was on it since February 2025. History of Present Illness - The patient is a 24-year-old female pr esenting with concern about side effects from GLP-1 therapy. - GLP-1 therapy initiated in February 2025, ceased on June 01 due to adverse effec ts following outside provider's advice. - Symptoms included dizziness, nausea, v omiting, fatigue, diarrhea, and yellowing of the eyes. Symptoms have stopped post-cessation. - Significant weight loss noted from 238 pounds to 180 lbs w/ use of medication. - Currently back to baseline but was hop ing for labs to confirm she is ok. Review of Systems - Constitutional: Reports fatigue, impro kobi post GLP-1 cessation. - Eyes: Reports yellowing transiently, r esolved, no photos of the incident. - Gastrointestinal: Reports vomiting, di arrhea, and severe gag reflex; resolved post-discontinuation. - Musculoskeletal: Reports significant w eight loss. - Neurological: Denies headaches, report s lightheadedness, resolved post- discontinuation. Physical Exam General: Well developed, well nourished, in no acute distress. Appears stated age. Head: Normocephalic, atraumatic. Eyes: Pupils are equal, round and reactive to light and accommodation. Conjunctivae are clear. Scleras nonicteric bilat Abdomen: Bowel sounds present in all quadrants. The abdomen is soft, nontender, with no masses or organomegaly noted. No hernias are noted. Musculoskeletal: Joints are nontender, without swelling, redness, or effusions. Pulses: Peripheral pulses are equal and palpable bilaterally. Extremities: No clubbing, cyanosis nor edema is noted. Psych: Mood and affect appropriate. Results Pending Labs from 04/2025 reviewed today w/ her. Discussion Notes The patient was counseled on the probable adverse drug reaction to GLP-1 therapy, with a review of side effects including gastrointestinal symptoms and jaundice. Discontinuation has led to symptom improvement. The necessity of checking liver and kidney functions was discussed, considering past GLP-1 usage. The potassium deficiency, identified previously, was addressed, explaining the potential implications on the body due to dietary absorption interference by GLP-1. Steps to monitor and reassess these levels were articulated. I assured the patient of follow-up after lab results are available and notified her that any significant abnormalities would result in direct communication about next steps. Patient was given time to ask questions. All questions were answered to their satisfaction. Assessment and Plan 1. Adverse Drug Reaction to GLP-1 - Discontinued use due to severe side ef fects. - Evaluate liver, pancreas, kidney funct ion and CBC 2. Potassium Deficiency - Reassess levels due to potential GLP-1 association. - Discussed dietary changes and possible supplementation. 3. Vitamin D Deficiency - Monitor levels, reassess with labs nichelle vital. Results will be sent to portal and further workup ordered if needed. Patient Instructions - Have blood work done as ordered, inclu ding liver, kidney, potassium, and vitamin D levels. - Monitor how you feel, and please repor t any worsening symptoms or new issues. - Follow a balanced diet that supports p otassium and vitamin D adequacy. - Await message via patient portal for r esults and further instructions. - Seek care sooner if any concerning sym ptoms arise. - RTO as scheduled for [facility] 04/2026 Consent Patient was informed and verbally consented to the use of an ambient scribe for clinic note documentation during this visit. Total time spent caring for the patient today was 30 minutes. This includes time spent before the visit reviewing the chart, time spent during the visit, and time spent after the visit on documentation, reviewing laboratory results, diagnostic imaging, medications, performing a medically necessary evaluation, counseling on diagnoses, care coordination, ordering appropriate tests, ordering appropriate medications, review of tests performed by other providers, reporting test results with the patient, communication with other healthcare providers. [facility]LY [facility] Medical History (Updated 06/18/25 @ 10:[address]ía [facility]) Acne Anxiety Surgical History (Updated 04/22/25 @ 09:48 by Montana Han MA) No history of previous surgery [place] teeth removed (~2018) Family History (Updated 04/22/25 @ 09:50 by Montana Han MA) Father Mental health disorder Substance abuse Maternal Grandmother Diabetes Cardiovascular disease Thyroid disorder Lung cancer Paternal Grandfather Stomach cancer Social History (Updated 04/22/25 @ 09:48 by Montana Han MA) Household Members: None Housing: House Are you a primary medication care manager to a significant other at home: No Do you presently have visiting nurse or other home services: No Alcohol intake: current Alcohol intake frequency: a few times a month Patient Tobacco Use Status: Never used Tobacco e-Cigarette/Vaping Use: Currently Using Second Hand Smoke Exposure: No Current occupational status: employed Current occupation: [employer] Cognitive needs: No Hearing needs: No Vision needs: No Questionnaire PHQ-9 Over the last 2 weeks, how often have you been bothered by any of the following problems? 1. Little interest or pleasure in doing things: not at all 2. Feeling down, depressed, or hopeless: not at all 3. Trouble falling or staying asleep, or sleeping too much: not at all 4. Feeling tired or having little energy: not at all 5. Poor appetite or overeating: not at all 6. Feeling bad about yourself - or that you are a failure or have let yourself or your family down: not at all 7. Trouble concentrating on things, such as reading the newspaper or watching television: not at all 8. Moving or speaking so slowly that other people could have noticed. Or the opposite - being so fidgety or restless that you have been moving around a lot more than usual: not at all 9. Thoughts that you would be better off or of hurting yourself in some way: not at all Total score: 0 Depression Screening Interpretation: Negative Depression Screening Done: Yes 90641 - PHQ-9 Billing: Yes Source: Developed by Drs. Jefferson Lamb, Shawnee Bustillos, Duong Farrell and colleagues, with an educational femi from [employer]. Thrive Questionnaire Date Thrive assessed: 04/22/25 I am a: Patient What is your living situation today?: I have a steady place to live Within the past 12 months, did the food you bought not last and you didn't have the money to get more?: Never true Within the past 12 months, did you worry whether your food would run out before you got money to buy more?: Never true Do you have trouble paying for medicines?: No Do you have trouble getting transportation to medical appointments?: No Do you have trouble paying your heating and electricity bill?: No Do you have trouble taking care of your child, family member or friend?: No Do you have trouble with day-to-day activities such as bathing, preparing meals, shopping, managing finances, etc.?: No Are you currently unemployed and looking for a job?: No Are you interested in more education?: No Please select the resources that you would like help with: None Currently or been in a relationship where the following occur: No concerns reported THRIVE Score: 0 KRISTYN-7 AMB Questionnaire KRISTYN-7 Date KRISTYN - 7 assessed: 06/18/25 Feeling nervous, anxious, or on edge: 0 = Not at all Not being able to stop or control worryin = Not at all Worrying too much about different things: 0 = Not at all Trouble relaxin = Not at all Being so restless that it is hard to sit still: 0 = Not at all Becoming easily annoyed or irritable: 0 = Not at all Feeling afraid as if something awful might happen: 0 = Not at all Total KRISTYN-7 score (0-4 normal; 5-9 mild; 10-14 moderate; 15-21 severe): 0 Source: Developed by Drs. Jefferson Lamb, Shawnee Bustillos, Duong Farrell and colleagues, with an educational femi from [employer]. KRISTYN-7 Assessment Billing KRISTYN-7 Assessment Tool: KRISTYN-7 Assessment 95642 Physical exam (Primary Care) Vital Signs: Last Vital Signs Temp 97.4 F 06/18/25 10:03 Pulse 68 06/18/25 10:03 Resp 12 06/18/25 10:03 BP 122/70 06/18/25 10:03 Pulse Ox 99 06/18/25 10:03 Oxygen Delivery Method Room Air 06/18/25 10:03 BMI result Body Mass Index 28.3 Tobacco/Smoking Status: Tobacco use Status Tobacco use date assessed 06/18/25 06/18/25 10:04 Patient Tobacco Use Status Never used Tobacco 06/18/25 10:01 e-Cigarette/Vaping Use Currently Using 06/18/25 10:01 PHQ-9: PHQ-9 Score PHQ-9: Total score 0 06/18/25 10:01 Depression Screening Interpretation: Negative Thrive Assessment: Date of Thrive Assessment Date Thrive assessed 04/22/25 06/18/25 10:01 Currently or been in a relationship where the following occur: No concerns reported Coding Level of Care Code Est Pt Level 4 (70029) Complex EM visit Add On G2211 Diagnoses Side effect of drug T88.7XXA Nausea vomiting and diarrhea R11.2; R19.7 Dizziness R42 Long-term (current) use of injectable non-insulin antidiabetic drugs Z79.85 Vitamin D deficiency E55.9 Additional Codes KRISTYN-7 Assessment Billing - KRISTYN-7 Assessment Tool: KRISTYN-7 Assessment 54106 ([id number]) PHQ-9 - 19780 - PHQ-9 Billing: Yes ([id number]) Assessment & Plan Assessment & Plan (1) Side effect of drug: Code(s): T88.7XXA - Unspecified adverse effect of drug or medicament, initial encounter Category: Medical (2) Nausea vomiting and diarrhea: Code(s): R11.2 - Nausea with vomiting, unspecified; R19.7 - Diarrhea, unspecified (3) Dizziness: Code(s): R42 - Dizziness and giddiness (4) Long-term (current) use of injectable non-insulin antidiabetic drugs: Code(s): Z79.85 - Long-term (current) use of injectable non-insulin antidiabetic drugs (5) Vitamin D deficiency: Code(s): E55.9 - Vitamin D deficiency, unspecified Category: Medical Plan . Orders: Orders Comprehensive Met. Panel Today E55.9 - Vitamin D deficiency, unspecified, T88.7XXA - Unspecified adverse effect of drug or medicament, initial encounter Amylase Today T88.7XXA - Unspecified adverse effect of drug or medicament, initial encounter Complete Blood Count no Diff Today E55.9 - Vitamin D deficiency, unspecified, T88.7XXA - Unspecified adverse effect of drug or medicament, initial encounter Vitamin D 25-OH Total Today E55.9 - Vitamin D deficiency, unspecified Lipase Today T88.7XXA - Unspecified adverse effect of drug or medicament, initial encounter
[2025-06-18 10:03] VITALS: BP 122/70; PULSE 68; RESP 12; TEMP 36.3; O2SAT 99; BMI 28.3
--- OUTSIDE RECORDS SUMMARY | 2025-06-18 10:16 | XMS_ITS | Clinical Summary ---
Author Organization [facility] Address [address] [place] [id number] Phone Care Team Providers Care Shorthand Teacher Name Role Phone Lis Painting NP Primary Care Provider [phone] Allergies Active Allergy Reactions Criticality Noted Date [...] Assessment & Plan (02/21/2024 2:27 PM EDT): [facility] counseling completed Aware due for pap smear [...] (V40.39) Onset: 10/05/2014 Added by: Tammi Catalan Immunizations Immunization Administration Dates Next Due DTaP [...] 77 07/30/2024 3:02 PM EDT Temperature 35.9 C (96.7 F) 02/28/2025 11:09 AM EDT Respiratory Rate - - Oxygen Saturation 99% 07/30/2024 3:02 PM EDT Inhaled Oxygen Concentration - - Weight 103 kg (227 lb) 12/12/2024 11:40 AM EST Height 167.6 cm (5' 6 ) 02/21/2024 1:06 PM EDT Body Mass Index 36.64 02/21/2024 1:06 PM EDT Plan of Treatment Health Maintenance Due Date Last Done Comments HIV Screening 2001 Syphilis Screening (consider for higher risk patients) 2001 Men B Vaccine (1 of 2 - Standard) 2017 COVID-19 Vaccine (2 5 season) 2024 Influenza Vaccines (#1) 2025 08/31/20 20, 08/01/2019, 10/15/2018, Additional history exists DTaP,Tdap,and Td Vaccines (8 [...] 10/15/2018, 10/03/20 16 Procedures * Due to [place] state law, this organization might not be sharing sensitive test results. Procedure Name Priority Date/Time Associated Diagnosis Comments CHLAMYDIA AND GONORRHEA, AMPLIFIED Routine 02/21/2024 1:24 PM EDT Screening for STD (sexually transmitted disease) from Last 3 Months or Most Recently Relevant to Health Maintenance Results * Due to [place] state law, this organization might not be sharing sensitive test results. * Chlamydia and Gonorrhoea, Amplified (02/21/2024 1:24 PM EDT) C trach CAITLIN Negative Negative [facility] N gonorrhoeae CAITLIN Negative Negative [facility] Swab (Vagina) 02/21/2024 1:2 4 PM EDT 02/21/2024 Comment:Vagina Narrative [facility] - 02/22/2024 9:06 PM EDT Performed at: 01 - [facility] [address] [id number] Accounts Payable Technician: Mckayla Radford MD, Phone: [phone] Lis Painting NP LAB MICROBIOLOGY - GENERAL ORD ERABLES Final Result Performing Organization Address City/State/[facility] Co de Phone Number [facility] [address] [place] [address] from Last 3 Months or Most Recently Relevant to Health Maintenance [place] [address] [place] [id number] [facility] H[facility] Care Teams Shorthand Teacher Relationship Specialty Start Date End Date Lis Painting NP [address] [facility] [address] [place] PCP - General Pediatrics 05/02/23
== END 2025-06-18 10:16 | disposition home or self-care (01) ==
LOC: HO.HMCFM 09:48
PROVIDERS: PCP Nurse Practitioner Family; Visit Provider Nurse Practitioner Family
DX: R11.2 Nausea with vomiting, unspecified (principal); R19.7 Diarrhea, unspecified; R42 Dizziness and giddiness; Z79.85 Long-term (current) use of injectable non-insulin antidiabetic drugs; E55.9 Vitamin D deficiency, unspecified

== ENCOUNTER → 2025-06-18 09:47 | Outpatient (BNVA) | payer BC, SELFPAY | PROVIDERS: PCP Nurse Practitioner Family; Visit Provider Nurse Practitioner Family | DX: E87.6 Hypokalemia (principal); E55.9 Vitamin D deficiency, unspecified; R11.2 Nausea with vomiting, unspecified; R42 Dizziness and giddiness; R19.7 Diarrhea, unspecified; Z79.85 Long-term (current) use of injectable non-insulin antidiabetic drugs | CPT/HCPCS: 96127 ==

== ENCOUNTER 2025-06-18 10:18 | Outpatient (REF) | payer BC, SELFPAY ==
[2025-06-18 11:39] LABS: Hematocrit 38.9 % (37.0-47.0); Hemoglobin 13.6 g/dl (12.0-16.0); Mean Corpuscular HGB Conc 35.0 g/dl (31.0-35.0); Mean Corpuscular Hemoglobin 31.4 pg (27.0-33.0); Mean Corpuscular Volume 89.8 fL (80.0-98.0); NRBC Abs Auto 0.000 X10*3/uL (0.0-0.012); NRBC Pct Auto 0.0 /100WBC (0.0-0.2); Platelet Count 298 X10*3/uL (160-400); Red Blood Count 4.33 X10*6/uL (4.20-5.50); White Blood Count 7.1 X10*3/uL (4.8-10.8)
[2025-06-18 12:23] LABS: Alanine Aminotransferase 30 U/L (0-31); Albumin Level 4.4 g/dL (3.5-5.0); Alkaline Phosphatase 62 U/L (39-117); Amylase 47 U/L (28-100); Anion Gap 11 (12-20); Aspartate Amino Transferase 28 U/L (5-31); Blood Urea Nitrogen 6 mg/dL (9-16); Calcium 8.7 mg/dL (8.4-10.2); Carbon Dioxide 22 mmol/L (22-29); Chloride 111 mmol/L (96-108); Estimated Glomerular Filt Rate > 60; Lipase 18 U/L (8-78); Potassium 3.4 mmol/L (3.3-5.1); Sodium 141 mmol/L (135-145); Total Protein 7.2 g/dL (6.5-8.0)
== END 2025-06-18 10:19 | disposition home or self-care (01) ==
LOC: HO.WFDLDS 10:18
PROVIDERS: Visit Provider Nurse Practitioner Family
DX: E55.9 Vitamin D deficiency, unspecified (principal); T88.7XXA Unspecified adverse effect of drug or medicament, initial encounter
CPT/HCPCS: 36415; 80053; 82150; 82306; 83690; 85027

== ENCOUNTER 2025-08-11 11:19 | Outpatient (REF) | payer BC, SELFPAY ==
--- OUTSIDE RECORDS SUMMARY | 2025-08-11 13:28 | XMS_ITS | Clinical Summary ---
Author Organization [facility] Address [address] [place] [address] Phone Care Team Providers Care Site Promotion Agent Name Role Phone Lis Painting NP Primary Care Provider [phone] Allergies Active Allergy Reactions Criticality Noted Date [...] Assessment & Plan (02/21/2024 2:27 PM EDT): [facility] counseling completed Aware due for [...] Vaccine (1 of 2 - Standard) 2017 Influenza Vaccines (#1) 2025 08/31/20 20, 08/01/2019, 10/15/2018, Additional history exists COVID-19 Vaccine (1 - 2023-2 5 season) 2025 DTaP,Tdap,and Td Vaccines (8 - Td or [...] 10/15/2018, 10/03/20 16 Procedures * Due to [place] state law, this organization might not be sharing sensitive test results. Procedure Name Priority Date/Time Associated Diagnosis Comments CHLAMYDIA AND GONORRHEA, AMPLIFIED Routine 02/21/2024 1:24 PM EDT Screening for STD (sexually transmitted disease) from Last 3 Months or Most Recently Relevant to Health Maintenance Results * Due to [place] state law, this organization might not be sharing sensitive test results. * Chlamydia and Gonorrhoea, Amplified (02/21/2024 1:24 PM EDT) C trach CAITLIN Negative Negative [facility] N gonorrhoeae CAITLIN Negative Negative [facility] Swab (Vagina) 02/21/2024 1:2 4 PM EDT 02/21/2024 Comment:Vagina Narrative [facility] - 02/22/2024 9:06 PM EDT Performed at: 01 - [facility] [address] [id number] Atomic Spectroscopist: Mckayla Radford MD, Phone: [phone] Lis Painting NP LAB MICROBIOLOGY - GENERAL ORD ERABLES Final Result Performing Organization Address City/State/[facility] Co de Phone Number [facility] [address] [place] [address] from Last 3 Months or Most Recently Relevant to Health Maintenance Insurance [address] [place], [place] [address]O [facility] HMO [facility] H[facility] Care Teams Site Promotion Agent Relationship Specialty Start Date End Date Lis Painting NP [address] [facility] [address] [place] PCP - General Pediatrics 05/02/23
--- OUTSIDE RECORDS SUMMARY | 2025-08-11 13:29 | XMS_ITS | Encounter Summary ---
Author Organization [facility] Address [address] [place] [address] Phone Care Team Providers Care Certified Hearing Instrument Dispenser Name Role Phone Lis Painting NP Primary Care Provider [phone] Reason for Visit * Reason Comments Med Refill Encounter Details Date Type Department Care Team (Late st Contact Info) Description 06/18/2019 Refill [facility] [address] [facility] [place] [address] Tammi Catalan MD [address] [place] [phone] Depression with anxiety Social History Tobacco Use Types Packs/Day Years Used Date Smoking Tobacco: Never Smokeless Tobacco: Never Comments:Never Smoker Alcohol Use Standard Drinks/Week Comments Never 0 (1 standard drink = 0.6 oz pur e alcohol) Hunger/Food Answer Date Recorded No 12/01/2018 Stable Housing Answer Date Recorded 0 12/01/2018 Transportation Concerns Answer Date Rec orded No 12/01/2018 Hazards in Home Answer Date Recorded No 12/01/2018 Financing Utilities Answer Date Recorde d No 12/01/2018 Safety at Home Answer Date Recorded No 12/01/2018 Outside Support Answer Date Recorded No 12/01/2018 Understanding Health Concerns Answer Da te Recorded No 12/01/2018 Financing Health Concerns Answer Date R ecorded No 12/01/2018 Missing School or Work Answer Date Davian rded No 12/01/2018 Comments No Sex and Gender Information Value Date Recorded Sex Assigned at Female 02/21/2024 1:28 PM EDT Legal Sex Female 6:19 PM EDT Gender Identity Female 02/21/2024 1:28 PM EDT Sexual Orientation Bisexual 06/28/2022 7: 45 PM EDT documented as of this encounter Plan of Treatment Not on file documented as of this encounter Visit Diagnoses Diagnosis Depression with anxiety Dysthymic disorder documented in this encounter Care Teams Certified Hearing Instrument Dispenser Relationship Specialty Start Date End Date Lis Painting NP [address] [facility] [place] [address] PCP - General Pediatrics 05/02/23 documented as of this encounter
--- OUTSIDE RECORDS SUMMARY | 2025-08-11 13:29 | XMS_ITS | Encounter Summary ---
Author Organization [facility] Address [address] [place] [address] Phone Care Team Providers Care Therapist Physical Name Role Phone Lis Painting NP Primary Care Provider [phone] Reason for Visit * Reason Comments Med Refill Encounter Details Date Type Department Care Team (Late st Contact Info) Description 12/16/2018 Refill [facility] [address] [facility] [place] [address] Elaine Mathias DO Depo-Provera contraceptive status Social History Tobacco Use Types Packs/Day Years Used Date Smoking Tobacco: Never Smokeless Tobacco: Never Comments:Never Smoker Hunger/Food Answer Date Recorded No 12/01/2018 Stable [...] Answer Date Davian rded No 12/01/2018 Comments Unknown Sex and Gender Information Value Date Recorded Sex Assigned at Female 02/21/2024 1:28 PM EDT Legal Sex Female 6:19 PM EDT Gender Identity Female 02/21/2024 1:28 PM EDT Sexual Orientation Bisexual 06/28/2022 7: 45 PM EDT documented as of this encounter Plan of Treatment Not on file documented as of this encounter Visit Diagnoses Diagnosis Depo-Provera contraceptive status documented in this encounter Care Teams Therapist Physical Relationship Specialty Start Date End Date Lis Painting NP [facility] [facility] [place] [address] PCP - General Pediatrics 05/02/23 documented as of this encounter
--- OUTSIDE RECORDS SUMMARY | 2025-08-11 13:29 | XMS_ITS | Encounter Summary ---
Author Organization [facility] Address [address] [place] [address] Phone Care Team Providers Care Transit Mix Operator Name Role Phone Lis Painting NP Primary Care Provider [phone] Reason for Visit * Reason Comments Med Refill Encounter Details Date Type Department Care Team (Late st Contact Info) Description 03/30/2021 Refill [facility] [address] [facility] [place] [address] Tammi Catalan MD [address] [place] [phone] Depression with anxiety Social History Tobacco Use [...] there wasn't enough money for food? No 10/17/2019 Stable Housing Answer Date Recorded Are you worried that in the next 2 months you may not have stable housing? No 10/17/2019 Transportation Concerns Answer Date Rec orded In the last 12 months, have you or your family ever had to go without healthcare because you didn't have a way to get there? No 10/17/2019 Hazards in Home Answer Date Recorded Think about the place you li ve. Do you have problems with any of the following? Pests (mice or roaches), mold, no/not working smoke detectors, water leaks, no window guards. No 2018 Financing Utilities Answer Date Recorde d In the last 12 months, has t he electric, gas, oil, or water company threatened to shut off your services in your home? No 10/17/2019 Safety at Home Answer Date Recorded Are you or your family worried about feeling saf e in your home? No 10/17/2019 Outside Support Answer Date Recorded Do you feel that you need mo re support from other people or programs to help you care for yourself or your family? No 10/17/2019 Understanding Health Concerns Answer Da te Recorded Do you need help understandi ng your or your child's healthcare needs (diagnosis, medications, plan, etc.)? No 10/17/2019 Financing Health Concerns Answer Date R ecorded In the last 12 months, was t here a time when your child needed to see a doctor or get medications or supplies but could not because of cost? No 10/17/2019 Missing School or Work Answer Date Davian rded Did you or your child miss s chool or work because of a health problem that could have been avoided? No 10/17/2019 Comments No Sex and Gender Information Value [...] disorder documented in this encounter Care Teams Transit Mix Operator Relationship Specialty Start Date End Date Lis Painting NP [facility] [facility] [place] [address] PCP - General Pediatrics 05/02/23 documented as of this encounter
--- OUTSIDE RECORDS SUMMARY | 2025-08-11 13:29 | XMS_ITS | Encounter Summary ---
Author Organization [facility] Address [address] [place] [address] Phone Care Team Providers Care Pure Pak Machine Operator Name Role Phone Lis Painting NP Primary Care Provider Encounter Details Date Type Department Care Team (Late st Contact Info) Description 05/09/2011 Conversion Encounter [facility] [address] [place] [address] [place] [address] Social History Tobacco Use Types Packs/Day Years Used Date Smoking Tobacco: Never Assessed Comments Unknown Sex and Gender Information Value Date Recorded Sex Assigned at Female 02/21/2024 1:28 PM EDT Legal Sex Female 6:19 PM EDT Gender Identity Female 02/21/2024 1:28 PM EDT Sexual Orientation Bisexual 06/28/2022 7: 45 PM EDT documented as of this encounter Plan of Treatment Not on file documented as of this encounter Visit Diagnoses Not on filedocumented in this encounter Care Teams Pure Pak Machine Operator Relationship Specialty Start Date End Date Lis Painting NP [address] [place] [address] [place] [address] PCP - General Pediatrics 05/02/23 documented as of this encounter
[2025-08-11 15:02] LABS: Bacterial Vaginosis PCR NEGATIVE (Negative); Candida Group PCR NOT DETECTED (Not Detect); Candida glab krusei PCR NOT DETECTED (Not Detect); Trichomonas vaginalis PCR NOT DETECTED (Not Detect)
[2025-08-11 15:34] LABS: CT PCR NOT DETECTED (Not Detect.); NG PCR NOT DETECTED (Not Detect.)
== END 2025-08-11 11:20 | disposition home or self-care (01) ==
LOC: HO.LNP 11:19
PROVIDERS: PCP Nurse Practitioner Family; Visit Provider Advanced Practice Midwife
DX: Z01.419 Encounter for gynecological examination (general) (routine) without abnormal findings (principal); Z20.2 Contact with and (suspected) exposure to infections with a predominantly sexual mode of transmission
CPT/HCPCS: 81515; 87491; 87591; 87626; 88175

== ENCOUNTER 2025-08-11 11:19 | Outpatient (AMB) | payer BC, SELFPAY ==
--- NOTE | 2025-08-11 11:20 | MHC.OFFVIS ---
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 She says she was started on Depo-Provera by her printed circuit boards pinner at [facility] when she was about 17 and she is still on it and is happy on it and wants to stay on it. She generally has female partners when she is active but wants to beyond the Depo for it is beneficial. Side effects and prevention just in case.. She has never had a Pap smear she is open to STI testing today.. She was on GLP ones for 4 months and that together with her efforts to eat healthy and exercise every day which she still does aided her in significant weight loss and she feels much better and she has maintained the weight loss since going off them, which she did for the side effects. She does walking and other exercises and has a dog she walks every day as well. [facility] Medical History Anxiety Acne Surgical History [place] teeth removed (~2018) No history of previous surgery Family History Father Mental health disorder Substance abuse Maternal Grandmother Diabetes Cardiovascular disease Thyroid disorder Lung cancer Paternal Grandfather Stomach cancer Social History Household Members: None Both parents involved: No Caregiver staying overnight: No Housing: House Are you a primary urgent care physician assistant to a significant other at home: No Do you presently have visiting nurse or other home services: No 75 years or older and lives alone: No Alcohol intake: current Alcohol intake frequency: a few times a month Patient Tobacco Use Status: Never used Tobacco e-Cigarette/Vaping Use: Currently Using Second Hand Smoke Exposure: No Current occupational status: employed Current occupation: [employer] Cognitive needs: No Hearing needs: No Vision needs: No Female Reproductive History Menstrual Age of Menarche: 12 Duration of menses: <3 days Date of last menstrual period: 08/05/25 control method: progesterone injection (Depo) Total pregnancies: 0 Physical Exam Vital Signs: Last Vital Signs BP 120/70 08/11/25 11:27 BMI result Body Mass Index 28.2 Const General: healthy appearing, comfortable, no acute distress, well developed and alert Nutritional Appearance: average body habitus Orientation/consciousness: patient oriented x3 Limitations: no limitations HEENT Head: Yes normocephalic Neck Neck: Yes normal visual inspection Thyroid: Thyroid normal Chest Chest palpation & inspection: normal inspection of the chest Breast/axilla inspection: normal inspection of the breasts and normal inspection of the axillae Breast/axilla palpation: normal palpation of the breasts and normal palpation of the axillae Resp Effort & Inspection: normal respiratory effort GI Inspection: Yes normal to inspection, No Abdominal wall edema and No distended Palpation (GI): Soft to palpation and nontender Other: First pelvic done normal external exam vagina pink and moist nulliparous pink smooth healthy-appearing cervix clear scant mucus vagina well rugated cervix long mobile nontender uterus small anteverted mobile nontender adnexa not palpable but nontender good tone with Kegel. General: Yes bladder normal to palpation External Female Exam: normal external appearance and normal appearance of the urethra Speculum Exam - Vagina: normal appearance of the vagina, normal palpation and normal vaginal discharge Speculum Exam - Cervix: normal appearance of the cervix, normal palpation and nontender Bimanual exam- vagina & uterus: normal bimanual exam, normal palpation, uterine size normal, bladder normal to palpation, consistency normal, normal palpation, uterine mobility normal, uterine shape normal, No Cervical tenderness present, non-tender and no cervical motion tenderness Bimanual Exam- Adnexa, other: normal adnexae, no masses, normal and No adnexal tenderness Neuro General: patient oriented x3 Assessment & Plan Assessment & Plan (1) Encounter for screening examination for sexually transmitted disease: Code(s): Z11.3 - Encounter for screening for infections with a predominantly sexual mode of transmission Category: Medical (2) Cervical cancer screening: Code(s): Z12.4 - Encounter for screening for malignant neoplasm of cervix Category: Medical (3) control counseling: Comment: All methods discussed patient has been on Depo long-term. Discussed. she desires to remain on it for now... Code(s): Z30.09 - Encounter for other general counseling and advice on contraception Category: Medical (4) Well woman exam with routine gynecological exam: Code(s): Z01.419 - Encounter for gynecological examination (general) (routine) without abnormal findings Category: Medical Plan -----Discussed in this visit the following: healthy balanced diet, regular and consistent exercise, getting recommended health screens, doing the best she can for her particular health concerns, kegel exercises, pap smear screening and followup recommendations, mammography screening and SBE, normal changes in cycles in her life stage--- . Reviewed self-breast exam reviewed long-term use of Depo-Provera on its side effects and how best to help counteract these with her healthy eating weight-bearing exercise making sure she gets adequate calcium and vitamin-D she has often forgotten the vitamin-D but she may restart it.. Discussed that I normally prescribe Depo-Provera every 12 weeks and the rationale though every 3 months is not incorrect. Discuss long-term use and the rationale for concern about bone protection. Safer sex discussed STI screening offered and she did accept and she will probably get the blood work done as well and she is on the portal and can check for her results there. RTC every 12 weeks for the Depo which she is going to schedule this week if she can and we will see her in a year. Orders: Orders Bacterial Vaginosis Panel Today Z01.419 - Encounter for gynecological examination (general) (routine) without abnormal findings HIV Ab/Ag Today Z11.3 - Encounter for screening for infections with a predominantly sexual mode of transmission, Z12.4 - Encounter for screening for malignant neoplasm of cervix, Z30.09 - Encounter for other general counseling and advice on contraception Hepatitis B Surface Antigen Today Z11.3 - Encounter for screening for infections with a predominantly sexual mode of transmission, Z12.4 - Encounter for screening for malignant neoplasm of cervix, Z30.09 - Encounter for other general counseling and advice on contraception Pap Smear Today Z01.419 - Encounter for gynecological examination (general) (routine) without abnormal findings CT NG by PCR Vag/Cerv Today Z - Encounter for gynecological examination (general) (routine) without abnormal findings Hepatitis C Antibody Today Z11.3 - Encounter for screening for infections with a predominantly sexual mode of transmission, Z12.4 - Encounter for screening for malignant neoplasm of cervix, Z30.09 - Encounter for other general counseling and advice on contraception Syphilis Screen Today Z11.3 - Encounter for screening for infections with a predominantly sexual mode of transmission, Z12.4 - Encounter for screening for malignant neoplasm of cervix, Z30.09 - Encounter for other general counseling and advice on contraception Medications: Changed From medroxyprogesterone (Depo-Provera) 150 mg IM [id number] 25 mL 0RF To medroxyprogesterone (Depo-Provera) 150 mg IM Q12W 1 mL 5RF Coding Level of Care Code New Pt Prev Care 18-39yr(63406 Diagnoses Encounter for screening examination for sexually transmitted disease Z11.3 Cervical cancer screening Z12.4 control counseling Z30. Well woman exam with routine gynecological exam Z
[2025-08-11 11:27] VITALS: BP 120/70; BMI 28.2
--- OUTSIDE RECORDS SUMMARY | 2025-08-11 12:48 | XMS_ITS | Clinical Summary ---
Author Organization [facility] 's Address [address] [place] [address] Care Team Providers Care Sheet Sorter Name Role Phone Tammi Catalan MD Primary Care Provider [phone] Source Comments Please note that some or all of the patient's information could have additional privacy protections. State laws allow health care providers to render certain types of treatment to minors without parental consent. Please do not assume that this information can be shared solely by obtaining just the consent of the patient's parent/guardian. Please determine if all or part of the patient's care was rendered without parent/guardian involvement. 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/13/2018 Mild stress incontinence 12/13/2018 Overview (12/13/2018): Long-standing difficulty incontinence since childhood including stress incontinence after grade school; no identified urological abnormalities Social History Tobacco Use Types Packs/Day Years Used Date Smoking Tobacco: Never Smokeless Tobacco: Never Comments Unknown Sex and Gender Information Value Date Recorded Sex Assigned at Not on file Legal Sex Female 11:46 AM EST Gender Identity Not on file Sexual Orientation Not on file Last Filed Vital Signs Vital Sign Reading Time Taken Comments Blood Pressure 109/71 01/11/2019 1:05 PM EST Pulse 87 01/11/2019 1:05 PM EST Temperature - - Respiratory Rate - - Oxygen Saturation - - Inhaled Oxygen Concentration - - Weight 93.5 kg (206 lb 2.1 oz) 01/11/2019 1:05 P M EST Height 167 cm (5' 5.75 ) 01/11/2019 1:05 PM EST Body Mass Index 33.53 01/11/2019 1:05 PM EST Plan of Treatment Health Maintenance Due Date Last Done Comments DTaP/TDAP/TD VACCINES (1 - Tdap) 2008 ADOLESCENT HIV SCREENING 2014 COVID-19 Vaccine ( - 2023-2 5 season) 2025 INFLUENZA (#1) 2025 NIRSEVIMAB VACCINES UNDER 8 MONTHS Aged Out No longer eligible based on patient's age to complete this topic Insurance Care Teams Sheet Sorter Relationship Specialty Start Date End Date Tammi Catalan MD PCP - General General Pediatrics 10/18/18
== END 2025-08-11 12:52 | disposition home or self-care (01) ==
LOC: HO.HWS 11:19
PROVIDERS: PCP Nurse Practitioner Family; Visit Provider Advanced Practice Midwife
DX: Z01.419 Encounter for gynecological examination (general) (routine) without abnormal findings (principal); Z11.3 Encounter for screening for infections with a predominantly sexual mode of transmission; Z12.4 Encounter for screening for malignant neoplasm of cervix; Z30.09 Encounter for other general counseling and advice on contraception
CPT/HCPCS: 99385; 99459

== ENCOUNTER 2025-08-21 13:11 | Outpatient (AMB) | payer BC, SELFPAY ==
[2025-08-21 13:44] VITALS: BMI 27.1
--- NOTE | 2025-08-21 13:44 | AM.OFFVISNUR ---
Vital Signs 08/21/25 13:44 Height 5 ft 7 in Weight 173 lb BMI 27.1 Intake Visit Reasons: DEPO Allergies amoxicillin Allergy (Severe, Verified 08/11/25 11:25) Rash Nursing Note Patient here for first depo provera injection at this office. Patient had picked up injection that was ordered by Kayleigh Mcmanus. She has been on Depo provera since she was 17 years old at her PCP office but now to will get them here. UPT negative today. NO complaints. to schedule next depo injection in 12 weeks. Office Procedures Depo Questionnaire If YES to any of the following questions, please consult a provider. Date of last injection: 05/21/25 Menstrual pattern since last injection has been: Not Applicable test in office results: Negative Irregular bleeding?: No Breast lumps or other breast changes?: No Changes in weight or appetite?: No Depression or changes in mood?: No Abnormal hair growth or loss?: No Skin problems (rash, acne, discoloration)?: No Pain at the injection site?: No Headaches?: No Nervousness?: No Abdominal pain or cramping?: No Dizziness or nausea?: No Fatigue or weakness?: No Decrease in sexual drive?: No Chest pain or shortness of breath?: No Swelling in arms or legs?: No Form completed by?: Kayla Wasserman LPN Office Meds Depo-Provera 150 mg/mL intramuscular syringe Performing Provider: Kayleigh Mcmanus CNM Performing Location: [facility] Administered by: Kayla Wasserman LPN on 08/21/25 13:45 Dose Route Admin Location Dispensed Lot Number Expiration Date [facility] Prosthetics Assistant 150 mg IM right deltoid 1 mL [id number] 10/12/26 [address]-5 [employer] Total Dispensed Waste 1 mL 0 % Assessment & Plan Assessment & Plan Orders: Orders AMB Medroxyprogesterone Injection Patient Supplied Today Z30.42 - Encounter for surveillance of injectable contraceptive Coding Level of Care Code Established Pt Est Pt Level 1 (24720) Patient Type Established History Problem Focused Exam Problem Focused Medical Decision Making Straight Forward Time Spent (min) 20
== END 2025-08-21 13:31 | disposition home or self-care (01) ==
LOC: HO.HWS 13:11
PROVIDERS: PCP Nurse Practitioner Family; Visit Provider Advanced Practice Midwife
DX: Z30.42 Encounter for surveillance of injectable contraceptive (principal); Z32.02 Encounter for pregnancy test, result negative
CPT/HCPCS: 99499

== ENCOUNTER → 2025-08-21 13:11 | Outpatient (BNVA) | payer BC, SELFPAY | PROVIDERS: PCP Nurse Practitioner Family; Visit Provider Advanced Practice Midwife | DX: Z30.42 Encounter for surveillance of injectable contraceptive (principal) | CPT/HCPCS: 81025; 96372; J1050 ==

== ENCOUNTER 2025-11-10 08:53 | Outpatient (AMB) | payer BC, SELFPAY ==
--- OUTSIDE RECORDS SUMMARY | 2025-11-10 09:05 | XMS_ITS | Encounter Summary ---
Author Organization [facility] Address [address] [place] [address] Phone Care Team Providers Care Floor Assembler Name Role Phone Lis Painting NP Primary Care Provider [phone] Reason for Visit * Reason Comments Med Refill Encounter Details Date Type Department Care Team (Late st Contact Info) Description 03/30/2021 Refill [facility] [address] [facility] [place] [address] aTmmi Catalan MD [address] [place] [address] Depression with anxiety Social History Tobacco Use [...] disorder documented in this encounter Care Teams Floor Assembler Relationship Specialty Start Date End Date Lis Painting NP [facility] [facility] [place] [address] PCP - General Pediatrics 05/02/23 documented as of this encounter
--- OUTSIDE RECORDS SUMMARY | 2025-11-10 09:05 | XMS_ITS | Encounter Summary ---
Author Organization [facility] Address [address] [place] [address] Phone Care Team Providers Care Special Education Aide Name Role Phone Lis Painting NP Primary Care Provider [phone] Encounter Details Date Type Department Care Team (Late st Contact Info) Description 05/09/2011 Conversion Encounter [facility] [address] [place] [address] [place] [address] Social History Tobacco Use Types Packs/Day Years [...] on filedocumented in this encounter Care Teams Special Education Aide Relationship Specialty Start Date End Date Lis Painting NP [address] [place] [address] [place] [address] PCP - General Pediatrics 05/02/23 documented as of this encounter
--- OUTSIDE RECORDS SUMMARY | 2025-11-10 09:05 | XMS_ITS | Clinical Summary ---
Author Organization [facility] Address [address] [place] [address] Phone Care Team Providers Care Full Fashioned Garment Knitter Name Role Phone Lis Painting NP Primary Care Provider [phone] Allergies Active Allergy Reactions Criticality Noted Date [...] Assessment & Plan (02/21/2024 2:27 PM EDT): [facility] counseling completed Aware due for pap [...] Sister Ginny Relation Name Status Comments Father Herny Alive Mother Madina Alive Sister Ginny Alive [...] Screening (consider for higher risk patients) 2001 Influenza Vaccines (#1) 2025 08/31/20 20, 08/01/2019, 10/15/2018, Additional history exists COVID-19 Vaccine ( season) 2025 DTaP,Tdap,and Td Vaccines (8 - Td or Tdap) 06/28/2032 06/28/2022, 10/25/2012, 09/14/2006, Additional history exists Hepatitis B Vaccines Completed 12/12/2002, 03/18/2002, 2001 HIB Vaccines Completed 03/21/2003, 04/2002, 01/14/2002, Additional history exists Pneumococcal Vaccine Completed 03/21/2003, 03/18/2002, 01/14/2002, Additional history exists IPV Vaccines Completed 09/14/2006, 0 07/2003, 01/14/2002, Additional history exists MMR Vaccines Completed 09/14/2006, 09/13/2002 Varicella Vaccines Completed 09/14/2006, 09/13/2002 HPV Vaccines Completed 04/26/2013, 12/14, 10/25/2012 Meningococcal Vaccine Completed 10/10/2017, 012 Hepatitis A Vaccines Completed 10/15/2018, 10/03/20 16 Men B Vaccine Aged Out No longer elig ible based on patient's age to complete this topic Procedures * Due to [place] state law, this organization might not be sharing sensitive test results. Procedure Name Priority Date/Time Associated Diagnosis Comments CHLAMYDIA AND GONORRHEA, AMPLIFIED Routine 02/21/2024 1:24 PM EDT Screening for STD (sexually transmitted disease) from Last 3 Months or Most Recently Relevant to Health Maintenance Results * Due to [place] state law, this organization might not be sharing sensitive test results. * Chlamydia and Gonorrhoea, Amplified (02/21/2024 1:24 PM EDT) C trach CAITLIN Negative Negative [facility] N gonorrhoeae CAITLIN Negative Negative [facility] Swab (Vagina) 02/21/2024 1:2 4 PM EDT 02/21/2024 Comment:Vagina Narrative [facility] - 02/22/2024 9:06 PM EDT Performed at: 01 - [facility] [address] [id number] Breeder Hen Service Technician: Mckayla Radford MD, Phone: [phone] Lis Painting NP LAB MICROBIOLOGY - GENERAL ORD ERABLES Final Result [facility] [address] [place] [address] from Last 3 Months or Most Recently Relevant to Health Maintenance Insurance [address] [place], [place] [address] [facility] Care Teams Full Fashioned Garment Knitter Relationship Specialty Start Date End Date Lis Painting NP [address] [place] [address] [place] PCP - General Pediatrics 05/02/23
--- OUTSIDE RECORDS SUMMARY | 2025-11-10 09:05 | XMS_ITS | Encounter Summary ---
Author Organization [facility] Address [address] [place] [address] Phone Care Team Providers Care Harness Preparer Name Role Phone Lis Painting NP Primary Care Provider [phone] Reason for Visit * Reason Comments Med Refill Encounter Details Date Type Department Care Team (Late st Contact Info) Description 12/16/2018 Refill [facility] [address] [place] [address] Elaine Mathias DO Depo-Provera contraceptive status Social [...] status documented in this encounter Care Teams Harness Preparer Relationship Specialty Start Date End Date Lis Painting NP [facility] [place] [address] PCP - General Pediatrics 05/02/23 documented as of this encounter
--- OUTSIDE RECORDS SUMMARY | 2025-11-10 09:05 | XMS_ITS | Clinical Summary ---
Author Organization [facility] Address [address] [place] [address] Care Team Providers Care Mental Health Associate Name Role Phone Tammi Catalan MD Primary Care Provider [phone] Source Comments Please note that some or [...] so, obtain the minor's consent prior to disclosure.[facility] Allergies Active Allergy Reactions Criticality Noted [...] to complete this topic Insurance Care Teams Mental Health Associate Relationship Specialty Start Date End Date Tammi Catalan MD PCP - General General Pediatrics 10/18/18
--- OUTSIDE RECORDS SUMMARY | 2025-11-10 09:05 | XMS_ITS | Encounter Summary ---
Author Organization [facility] Address [address] [place] [address] Phone Care Team Providers Care Lucerne Farmer Name Role Phone Lis Painting NP Primary Care Provider [phone] Reason for Visit * Reason Comments Med Refill Encounter Details Date Type Department Care Team (Late st Contact Info) Description 06/18/2019 Refill [facility] [address] [facility] [place] [address] Tammi Catalan MD [address] [place] [address] Depression with anxiety Social History Tobacco Use [...] disorder documented in this encounter Care Teams Lucerne Farmer Relationship Specialty Start Date End Date Lis Painting NP [address] [facility] [place] [address] PCP - General Pediatrics 05/02/23 documented as of this encounter
[2025-11-10 09:10] VITALS: BMI 27.3
--- NOTE | 2025-11-10 09:10 | AM.OFFVISNUR ---
Vital Signs 11/10/25 09:10 Height 5 ft 7 in Weight 174 lb 3 oz BMI 27.3 Intake Visit Reasons: depo Allergies amoxicillin Allergy (Severe, Verified 08/11/25 11:25) Rash Nursing Note Michelle is here today for her scheduled DEPO-Provera inj. She denies any problems or concerns. Follow up appt in 12 weeks has been scheduled. Office Procedures Depo Questionnaire If YES to any of the following questions, please consult a provider. Date of last injection: 08/21/25 Date of last gynecology exam: 08/11/25 Menstrual pattern since last injection has been: Not Applicable Irregular bleeding?: No Breast lumps or other breast changes?: No Changes in weight or appetite?: No Depression or changes in mood?: No Abnormal hair growth or loss?: No Skin problems (rash, acne, discoloration)?: No Pain at the injection site?: No Headaches?: No Nervousness?: No Abdominal pain or cramping?: No Dizziness or nausea?: No Fatigue or weakness?: No Decrease in sexual drive?: No Chest pain or shortness of breath?: No Swelling in arms or legs?: No Form completed by?: Vicente Zamora LPN Office Meds Depo-Provera 150 mg/mL intramuscular syringe Performing Provider: Kayleigh Mcmanus CNM Per[place] [facility] Administered by: Delfina Zamora LPN on 11/10/25 09:13 Dose Route Admin Location Dispensed Lot Number Expiration Date [facility] Parquet Floor Layer 150 mg IM rt. deltoid 1 mL [id number] 11/12/27 70287-355-90 [facility] Total Dispensed Waste 1 mL 0 % Assessment & Plan Assessment & Plan Orders: Orders AMB Medroxyprogesterone Injection Patient Supplied Today Z30.42 - Encounter for surveillance of injectable contraceptive Coding Level of Care Code Established Pt Est Pt Level 1 (07251) Patient Type Established History Problem Focused Exam Problem Focused Medical Decision Making Straight Forward Time Spent (min) 20
== END 2025-11-10 10:20 | disposition home or self-care (01) ==
LOC: HO.HWS 08:54
PROVIDERS: PCP Nurse Practitioner Family; Visit Provider Advanced Practice Midwife
DX: Z30.42 Encounter for surveillance of injectable contraceptive (principal)
CPT/HCPCS: 99499

== ENCOUNTER → 2025-11-10 08:53 | Outpatient (BNVA) | payer BC, SELFPAY | PROVIDERS: PCP Nurse Practitioner Family; Visit Provider Advanced Practice Midwife | DX: Z30.42 Encounter for surveillance of injectable contraceptive (principal) | CPT/HCPCS: 96372; J1050 ==